=== PATIENT | male | born 1985 | race American Indian/Alaskan Native ===

== ENCOUNTER 2022-02-19 16:31 | Emergency (ER) | payer SELFPAY ==
[2022-02-19] MEDS ORDERED: SODIUM CHLORIDE 0.9% 1000 ML 1,000 ML IV ONE (16:34)
[2022-02-19] MEDS ORDERED: MORPHINE 4 MG/1 ML INJ IV ONE ×2 (16:34→17:37)
[2022-02-19] MEDS ORDERED: ceFAZolin/NS 1 GM/50 ML 1 GM/50 ML BAG IV ONE (16:35)
[2022-02-19] MEDS ORDERED: ONDANSETRON 4 MG/2 ML INJ IV ONE (16:35)
[2022-02-19] MEDS ORDERED: TETANUS,DIPHTHERIA TOXOID ADULT 0.5 ML INJ IM ONE (16:35)
[2022-02-19 17:00] LABS: Hemoglobin 14.3 gm/dl (11.8-15.2); Mean Corpuscular HGB Conc 33 % (32-34); Mean Corpuscular Volume 90 fl (84-94); Platelet Count 469 K/mm3 (140-440); Red Blood Count 4.77 M/mm3 (3.65-5.03); Red Cell Distribution Width 14.2 % (13.2-15.2)
[2022-02-19 17:06] LABS: INR 0.93 (0.87-1.13)
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
[2022-02-19 17:13] LABS: Alanine Aminotransferase 31 units/L (7-56); Albumin 4.5 g/dL (3.9-5); BUN/Creatinine Ratio 18; Blood Urea Nitrogen 18 mg/dL (9-20); Calcium 9.7 mg/dL (8.4-10.2); Hemolysis Index 5
[2022-02-19 17:25] VITALS: BP 143/96
[2022-02-19 18:01] LABS: Band Neutrophils # (Manual) 0.1 K/mm3; Basophils % (Manual) 0 % (0.0-1.8); Giant Platelets Rare; Platelet Estimate Consistent w Auto; RBC Morphology Normal; Total Cells Counted 100
== END 2022-02-19 18:00 | disposition hospice, inpatient (51) ==
LOC: ED 16:31
DX: S71.132A Puncture wound without foreign body, left thigh, initial encounter (principal); W34.09XA Accidental discharge from other specified firearms, initial encounter; Y93.89 Activity, other specified; Y92.89 Other specified places as the place of occurrence of the external cause; Y99.8 Other external cause status
CPT/HCPCS: 29505; 36415; 73552; 80053; 82550; 85007; 85025; 85610; 86850; 86900; 86901; 96365; 96375; 96376; 99285; J0690; J2270; J2405; J7030; 80320; Q0162; G0480